=== PATIENT | male | born 1995 | race Two or more races ===

== ENCOUNTER 2019-11-02 21:33 | Emergency (ER) | payer OTHER ==
[~2019-11-02] VITALS: Ht 180.3 cm; Wt 132.9 kg
--- NOTE | 2019-11-02 21:49 | NUR ---
PATIENT CAME TO ER BED 3 C/O PRESSURE ON LEFT SIDE OF HIS CHEST. PATIENT STATES THAT HE CAME BACK FROM A ROAD TRIP AND HAD SOME FOOD. PATIENT STATES HIS GRANDFATHER HAD A STROKE AT 70 YEARS OLD. PATIENT STATES THAT HE HAS BEEN HAVING DIFFICULTY BREATHING, PATIENT IMMEDIATELY PLACED ON HIGH FOWLERS AND IS AT 99% O2 SATURATION ON ROOM AIR. AAOX4. NO SOB. BREATHING EVENLY AND UNLABORED. CONNECTED TO MONITOR.
[2019-11-02 22:51] VITALS: BP 132/76
--- NOTE | 2019-11-02 22:51 | NUR ---
Patient discharged to home in stable condition. Written and verbal after care instructions given. Patient verbalizes understanding of instruction.
== END 2019-11-02 22:56 | disposition home or self-care (01) ==
LOC: ER 21:36
DX: R00.2 Palpitations (principal); R07.89 Other chest pain; F41.9 Anxiety disorder, unspecified; R00.0 Tachycardia, unspecified